=== PATIENT | female | born 1960 | race African-American/Black ===

== ENCOUNTER 2018-08-26 05:55 | Inpatient (IN) ==
[2018-08-26] MEDS ORDERED: ONDANSETRON 4 MG/2 ML VIAL IV STA (06:19)
[2018-08-26] MEDS ORDERED: HYDROmorphone 2 MG/1 ML VIAL IV STA ×2 (06:19→08:54)
[2018-08-26 07:16] LABS: Basophils # 0.1 10*3/uL (0.0-0.2); Basophils % 0.2 % (0.0-0.8); Eosinophils # 0.2 10*3/uL (0.0-0.87); Eosinophils % 0.7 % (0.00-10.9); Hematocrit 37.2 VOL% (35.7-47.0); Hemoglobin 11.5 GM/DL (12.0-16.0); Immature Granulocytes Absolute 0.47 #; Lymphocytes # 2.1 10*3/uL (1.4-4.0); Lymphocytes % 8.8 % (21.3-54.2); Mean Corpuscular HGB Conc 30.9 GM/DL (32-36); Mean Corpuscular Hemoglobin 29 PG (27-34); Mean Corpuscular Volume 94.4 FL (87-102); Mean Platelet Volume 11.1 FL (9.6-12.0); Monocytes # 1.1 10*3/uL (0.11-0.8); Monocytes % 4.7 % (1.7-12.7); Neutrophils # 20.1 10*3/uL (1.4-7.4); Neutrophils % 83.6 % (38.7-73.9); Platelet Count 168 T/CUMM (130-400); Red Blood Count 3.94 MC/CUMM (3.8-5.5); Red Cell Distribution Width 18.7 % (9.3-17.3)
[2018-08-26] MEDS ORDERED: cefTRIAXone 1,000 MG in SODIUM CHLORIDE 0.9% 100 ML IV STA (07:26)
[2018-08-26 07:38] LABS: Alanine Aminotransferase 19 U/L (13-56); Albumin 3.2 G/DL (3.4-5.0); Alkaline Phosphatase 74 U/L (45-117); Aspartate Amino Transferase 15 U/L (0-37); Blood Urea Nitrogen 16 MG/DL (7-18); Calcium 8.7 MG/DL (8.5-10.1); Glucose 121 MG/DL (74-106); Potassium 3.4 MMOL/L (3.5-5.1); Sodium 143 MMOL/L (136-145); Total Protein 7.1 G/DL (6.4-8.3)
[2018-08-26 07:39] LABS: Band Neutrophils 5 % (0-10); Hypochromasia 1+; Lymphocytes 8 % (20-55); Platelet Estimate Adequate; Segmented Neutrophils 82 % (50-85); Total Cells Counted 100
[2018-08-26 07:40] LABS: Ovalocytes Slight
[2018-08-26 07:41] LABS: Lactic Acid 2.1 MMOL/L (0.4-2.0)
[2018-08-26 08:35] LABS: Apearance,Urine Slightly Hazy (Clear); Bacteria,Urine Many /HPF (Few); Bilirubin,Urine Negative (Negative); Blood, Urine Moderate mg/dL (Negative); Glucose,Urine (UA) Negative (Negative); Ketones,Urine Negative (Negative); Mucus,Urine Occasional /LPF (Occasional); Nitrite,Urine Negative (Negative); Protein,Urine 30 MG/DL; RBC,Urine 59 /HPF (0-4); Squamous Epithelial Cell,Urine Occasional /HPF (0-10); Urine Color Yellow (Yellow); Urine Specific Gravity 1.014 (1.001-1.035); Urine Urobilinogen < 2.0 EU/DL (0.2-1.0); WBC,Urine 377 /HPF (0-6)
[2018-08-26] MEDS ORDERED: ONDANSETRON 4 MG/2 ML VIAL IV PRN (08:52)
[2018-08-26] MEDS: SODIUM CHLORIDE 0.9% 1,000 ML IV SCH ×2 (10:45→20:10)
[2018-08-26 11:34] LABS: Lactic Acid 2.6 MMOL/L (0.4-2.0)
[2018-08-26] MEDS: HYDROmorphone 2 MG/1 ML VIAL IV SCH ×4 (13:04→23:06)
[2018-08-26] MEDS: PANTOPRAZOLE 40 MG TABLET PO SCH (13:04)
[2018-08-26] MEDS ORDERED: traMADol 50 MG TABLET PO PRN (15:43)
[2018-08-26] MEDS: CITALOPRAM 20 MG TABLET PO SCH (16:03)
[2018-08-26] MEDS: amLODIPine 10 MG TABLET PO SCH (16:03)
[2018-08-26] MEDS: ACETAMINOPHEN 325 MG TABLET PO PRN (17:35)
[2018-08-26] MEDS: MEROPENEM 1,000 MG in SODIUM CHLORIDE 0.9% 100 ML IV SCH (18:28)
[2018-08-26] MEDS: CARVEDILOL 3.125 MG TABLET PO SCH (20:42)
[2018-08-26] MEDS: CLORAZEPATE 3.75 MG TABLET PO SCH (20:42)
[2018-08-26] MEDS ORDERED: cefTRIAXone 1,000 MG in SYRINGE 1 EACH IV SCH (21:00)
[2018-08-27] MEDS: MEROPENEM 1,000 MG in SODIUM CHLORIDE 0.9% 100 ML IV SCH ×3 (01:40→20:26)
[2018-08-27 02:38] LABS: Basophils # 0.1 10*3/uL (0.0-0.2); Basophils % 0.3 % (0.0-0.8); Eosinophils % 0.1 % (0.00-10.9); Hematocrit 34.2 VOL% (35.7-47.0); Hemoglobin 10.2 GM/DL (12.0-16.0); Immature Granulocytes % 1.4 %; Immature Granulocytes Absolute 0.32 #; Lymphocytes # 1.5 10*3/uL (1.4-4.0); Lymphocytes % 6.6 % (21.3-54.2); Mean Corpuscular HGB Conc 29.8 GM/DL (32-36); Mean Corpuscular Hemoglobin 28 PG (27-34); Mean Corpuscular Volume 94.7 FL (87-102); Monocytes # 2.4 10*3/uL (0.11-0.8); Monocytes % 10.6 % (1.7-12.7); NRBC # 0.07 10*3/uL; Neutrophils # 18.2 10*3/uL (1.4-7.4); Platelet Count 171 T/CUMM (130-400); Red Blood Count 3.61 MC/CUMM (3.8-5.5); Red Cell Distribution Width 19.3 % (9.3-17.3); White Blood Count 22.5 T/CUMM (4-12)
[2018-08-27 03:06] LABS: Calcium 7.6 MG/DL (8.5-10.1); Osmolality,Calculated 286.1 MOS/KG (273-304); Risk Ratio 2.71; Thyroid Stimulating Hormone 0.746 uIU/ml (0.358-3.74)
[2018-08-27 03:19] LABS: Hypochromasia 1+; Platelet Estimate Normal; Polychromasia Few; Stomatocytes 1+
[2018-08-27] MEDS: HYDROmorphone 2 MG/1 ML VIAL IV SCH ×4 (04:25→21:28)
[2018-08-27] MEDS: SODIUM CHLORIDE 0.9% 1,000 ML IV SCH ×2 (04:33→20:25)
[2018-08-27] MEDS ORDERED: cefTRIAXone 1,000 MG in SYRINGE 1 EACH IV SCH (07:30)
[2018-08-27] MEDS: CARVEDILOL 3.125 MG TABLET PO SCH ×2 (08:56→20:24)
[2018-08-27] MEDS: CITALOPRAM 20 MG TABLET PO SCH (08:56)
[2018-08-27] MEDS: POTASSIUM CHLORIDE 20 MEQ TABLET PO SCH (08:56)
[2018-08-27] MEDS: CHOLECALCIFEROL 1,000 UNIT TABLET PO SCH (08:56)
[2018-08-27] MEDS: PANTOPRAZOLE 40 MG TABLET PO SCH (08:57)
[2018-08-27] MEDS: amLODIPine 10 MG TABLET PO SCH (09:31)
[2018-08-27] MEDS: CLORAZEPATE 3.75 MG TABLET PO SCH ×2 (10:44→20:24)
[2018-08-27] MEDS ORDERED: ALUMINUM/MAGNES/SIMETH MAX STR 30 ML UDCUP PO PRN (13:15)
[2018-08-27] MEDS: ACETAMINOPHEN 325 MG TABLET PO PRN (16:37)
[2018-08-28] MEDS: MEROPENEM 1,000 MG in SODIUM CHLORIDE 0.9% 100 ML IV SCH (02:04)
[2018-08-28 04:18] LABS: Basophils # 0.1 10*3/uL (0.0-0.2); Basophils % 0.3 % (0.0-0.8); Eosinophils # 0.2 10*3/uL (0.0-0.87); Eosinophils % 0.7 % (0.00-10.9); Hematocrit 33.4 VOL% (35.7-47.0); Immature Granulocytes Absolute 0.45 #; Lymphocytes # 1.5 10*3/uL (1.4-4.0); Lymphocytes % 6.7 % (21.3-54.2); Mean Corpuscular HGB Conc 29.9 GM/DL (32-36); Mean Corpuscular Hemoglobin 28 PG (27-34); Mean Corpuscular Volume 94.9 FL (87-102); Mean Platelet Volume 11.3 FL (9.6-12.0); Monocytes # 2.1 10*3/uL (0.11-0.8); NRBC # 0.02 10*3/uL; Neutrophils # 18.7 10*3/uL (1.4-7.4); Neutrophils % 81.3 % (38.7-73.9); Platelet Count 181 T/CUMM (130-400); Red Blood Count 3.52 MC/CUMM (3.8-5.5); Red Cell Distribution Width 19.4 % (9.3-17.3)
[2018-08-28 04:33] LABS: Calcium 7.6 MG/DL (8.5-10.1); Osmolality,Calculated 289.7 MOS/KG (273-304); Potassium 4.3 MMOL/L (3.5-5.1)
[2018-08-28 05:21] LABS: Anisocytosis 2+; Band Neutrophils 2 % (0-10); Eosinophils 2 % (0-10); Lymphocytes 5 % (20-55); Macrocytosis 1+; Microcytosis 1+; Platelet Estimate Normal; Segmented Neutrophils 85 % (50-85); Total Cells Counted 100
[2018-08-28] MEDS: SODIUM CHLORIDE 0.9% 1,000 ML IV SCH ×4 (05:28→23:12)
[2018-08-28] MEDS: HYDROmorphone 2 MG/1 ML VIAL IV SCH ×5 (09:15→18:16)
[2018-08-28] MEDS: CHOLECALCIFEROL 1,000 UNIT TABLET PO SCH (09:16)
[2018-08-28] MEDS: POTASSIUM CHLORIDE 20 MEQ TABLET PO SCH (09:16)
[2018-08-28] MEDS: PANTOPRAZOLE 40 MG TABLET PO SCH (09:16)
[2018-08-28] MEDS: amLODIPine 10 MG TABLET PO SCH (09:16)
[2018-08-28] MEDS: CITALOPRAM 20 MG TABLET PO SCH (09:16)
[2018-08-28] MEDS: CARVEDILOL 3.125 MG TABLET PO SCH ×2 (09:17→20:14)
[2018-08-28] MEDS: CLORAZEPATE 3.75 MG TABLET PO SCH ×2 (10:24→20:17)
[2018-08-28] MEDS: CEFUROXIME 500 MG TABLET PO SCH (20:14)
[2018-08-29] MEDS: HYDROmorphone 2 MG/1 ML VIAL IV SCH ×6 (00:26→22:28)
[2018-08-29 04:34] LABS: Basophils # 0.1 10*3/uL (0.0-0.2); Basophils % 0.5 % (0.0-0.8); Eosinophils # 0.2 10*3/uL (0.0-0.87); Eosinophils % 1.4 % (0.00-10.9); Hematocrit 33.1 VOL% (35.7-47.0); Hemoglobin 10.2 GM/DL (12.0-16.0); Immature Granulocytes % 2.6 %; Immature Granulocytes Absolute 0.39 #; Lymphocytes # 1.6 10*3/uL (1.4-4.0); Lymphocytes % 10.7 % (21.3-54.2); Mean Corpuscular HGB Conc 30.8 GM/DL (32-36); Mean Corpuscular Hemoglobin 29 PG (27-34); Mean Corpuscular Volume 93.5 FL (87-102); Mean Platelet Volume 11.4 FL (9.6-12.0); Monocytes # 1.3 10*3/uL (0.11-0.8); Monocytes % 8.6 % (1.7-12.7); NRBC # 0.04 10*3/uL; Neutrophils # 11.6 10*3/uL (1.4-7.4); Neutrophils % 76.2 % (38.7-73.9); Platelet Count 209 T/CUMM (130-400); Red Blood Count 3.54 MC/CUMM (3.8-5.5); Red Cell Distribution Width 19.2 % (9.3-17.3); White Blood Count 15.2 T/CUMM (4-12)
[2018-08-29 05:01] LABS: Calcium 7.9 MG/DL (8.5-10.1); Potassium 4.1 MMOL/L (3.5-5.1)
[2018-08-29] MEDS ORDERED: ceFAZolin 2,000 MG in PREMIX 1 EACH IV ONE (06:00)
[2018-08-29] MEDS: SODIUM CHLORIDE 0.9% 1,000 ML IV SCH ×3 (06:45→20:53)
[2018-08-29] MEDS ORDERED: fentaNYL 100 MCG/2 ML VIAL ONE (08:02)
[2018-08-29] MEDS ORDERED: PROPOFOL 200 MG/20 ML VIAL IV ONE (08:02)
[2018-08-29] MEDS ORDERED: SEVOFLURANE 1 UNIT/15 MINUTE INH ONE (08:02)
[2018-08-29] MEDS ORDERED: DEXAMETHASONE 10 MG/1 ML VIAL ONE (08:03)
[2018-08-29] MEDS ORDERED: MIDAZOLAM 2 MG/2 ML VIAL ONE (08:03)
[2018-08-29] MEDS ORDERED: ACETAMINOPHEN 1,000 MG/100 ML VIAL IV ONE (08:03)
[2018-08-29] MEDS ORDERED: ONDANSETRON 4 MG/2 ML VIAL ONE (08:03)
[2018-08-29] MEDS ORDERED: PHENYLEPHRINE 1 MG/10 ML SYRINGE IV ONE (08:03)
[2018-08-29] MEDS: CHOLECALCIFEROL 1,000 UNIT TABLET PO SCH (08:49)
[2018-08-29] MEDS: CLORAZEPATE 3.75 MG TABLET PO SCH ×2 (08:49→20:52)
[2018-08-29] MEDS: CARVEDILOL 3.125 MG TABLET PO SCH ×2 (08:51→20:52)
[2018-08-29] MEDS: CEFUROXIME 500 MG TABLET PO SCH ×2 (08:52→20:52)
[2018-08-29] MEDS: PANTOPRAZOLE 40 MG TABLET PO SCH (08:52)
[2018-08-29] MEDS: POTASSIUM CHLORIDE 20 MEQ TABLET PO SCH (08:52)
[2018-08-29] MEDS: CITALOPRAM 20 MG TABLET PO SCH (08:52)
[2018-08-29] MEDS: amLODIPine 10 MG TABLET PO SCH (08:52)
[2018-08-30] MEDS: SODIUM CHLORIDE 0.9% 1,000 ML IV SCH ×2 (04:54→17:01)
[2018-08-30 05:19] LABS: Basophils % 0.1 % (0.0-0.8); Hematocrit 32.1 VOL% (35.7-47.0); Hemoglobin 9.8 GM/DL (12.0-16.0); Immature Granulocytes % 2.4 %; Lymphocytes # 1.3 10*3/uL (1.4-4.0); Lymphocytes % 10.2 % (21.3-54.2); Mean Corpuscular HGB Conc 30.5 GM/DL (32-36); Mean Corpuscular Hemoglobin 28 PG (27-34); Mean Platelet Volume 11.2 FL (9.6-12.0); Monocytes # 0.5 10*3/uL (0.11-0.8); Monocytes % 4.1 % (1.7-12.7); Neutrophils # 10.5 10*3/uL (1.4-7.4); Neutrophils % 83.2 % (38.7-73.9); Platelet Count 255 T/CUMM (130-400); Red Blood Count 3.45 MC/CUMM (3.8-5.5); Red Cell Distribution Width 19.2 % (9.3-17.3); White Blood Count 12.6 T/CUMM (4-12)
[2018-08-30] MEDS: HYDROmorphone 2 MG/1 ML VIAL IV SCH ×3 (05:40→17:01)
[2018-08-30 05:42] LABS: Calcium 7.9 MG/DL (8.5-10.1); Potassium 4.6 MMOL/L (3.5-5.1)
[2018-08-30] MEDS: CITALOPRAM 20 MG TABLET PO SCH (10:35)
[2018-08-30] MEDS: CLORAZEPATE 3.75 MG TABLET PO SCH (10:35)
[2018-08-30] MEDS: amLODIPine 10 MG TABLET PO SCH (10:35)
[2018-08-30] MEDS: CEFUROXIME 500 MG TABLET PO SCH (10:35)
[2018-08-30] MEDS: CHOLECALCIFEROL 1,000 UNIT TABLET PO SCH (10:36)
[2018-08-30] MEDS: POTASSIUM CHLORIDE 20 MEQ TABLET PO SCH (10:36)
[2018-08-30] MEDS: PANTOPRAZOLE 40 MG TABLET PO SCH (10:36)
[2018-08-30] MEDS: CARVEDILOL 3.125 MG TABLET PO SCH (10:36)
[2018-08-30 18:18] VITALS: BP 144/72
== END 2018-08-30 12:33 | disposition home or self-care (01) | DRG 829 ==
LOC: N.ED 05:55 → N.EDINP 08:49 → N.5E 09:44 → N.4E 10:08
PROVIDERS: ADMIT Hospitalist; ATTEND Hospitalist

== ENCOUNTER 2022-10-22 23:41 | Inpatient (IN) ==
[2022-10-23] MEDS ORDERED: ONDANSETRON 4 MG/2 ML VIAL IV STA (00:07)
[2022-10-23] MEDS ORDERED: MORPHINE 2 MG/1 ML SYRINGE IV STA (00:07)
[2022-10-23] MEDS ORDERED: SODIUM CHLORIDE 0.9% 1,000 ML IV STA (00:07)
[2022-10-23 00:43] LABS: Basophils % 0.2 % (0.0-0.8); Eosinophils # 0.3 10*3/uL (0.0-0.87); Hematocrit 36.5 VOL% (35.7-47.0); Hemoglobin 11.6 GM/DL (12.0-16.0); Immature Granulocytes % 0.6 %; Immature Granulocytes Absolute 0.09 #; Lymphocytes # 2.4 10*3/uL (1.4-4.0); Lymphocytes % 15.3 % (21.3-54.2); Mean Corpuscular HGB Conc 31.8 GM/DL (32-36); Mean Corpuscular Volume 85.5 FL (87-102); Mean Platelet Volume 10.1 FL (9.6-12.0); Monocytes # 0.7 10*3/uL (0.11-0.8); Monocytes % 4.6 % (1.7-12.7); Neutrophils % 77.3 % (38.7-73.9); Platelet Count 335 T/CUMM (130-400); Red Blood Count 4.27 MC/CUMM (3.8-5.5); Red Cell Distribution Width 17.5 % (9.3-17.3); White Blood Count 15.8 T/CUMM (4-12)
[2022-10-23 01:06] LABS: Albumin 3.6 G/DL (3.4-5.0); Bilirubin,Total 0.4 MG/DL (0.20-1.00); Calcium 7.4 MG/DL (8.5-10.1); Osmolality,Calculated 281.5 MOS/KG (273-304); Potassium 3.4 MMOL/L (3.5-5.1); Total Protein 8.1 G/DL (6.4-8.2)
[2022-10-23 02:04] LABS: Bacteria,Urine Few /HPF (Few); Mucus,Urine Occasional /LPF (Occasional); RBC,Urine 2 /HPF (0-4); Squamous Epithelial Cell,Urine Few /HPF (0-10)
[2022-10-23 02:05] LABS: Bilirubin,Urine Negative (Negative); Blood, Urine Trace mg/dL (Negative); Glucose,Urine (UA) Negative (Negative); Ketones,Urine Negative (Negative); Nitrite,Urine Positive (Negative); Protein,Urine 30 mg/dL (Negative); Urine Appearance Slightly Hazy (Clear); Urine Color Yellow (Yellow); Urine Specific Gravity 1.015 (1.001-1.035)
[2022-10-23 02:06] LABS: Urine Urobilinogen 0.2 eU/dL (<2.0)
[2022-10-23] MEDS ORDERED: PIPERACILLIN/TAZOBACTAM 3,375 MG in SODIUM CHLORIDE 0.9% 100 ML IV STA (02:46)
[2022-10-23] MEDS ORDERED: ONDANSETRON 4 MG/2 ML VIAL IV PRN (02:50)
[2022-10-23] MEDS ORDERED: hydrALAZINE 20 MG/1 ML VIAL IV PRN (02:50)
[2022-10-23] MEDS ORDERED: MORPHINE 2 MG/1 ML SYRINGE IV PRN (02:50)
[2022-10-23] MEDS: DEXTROSE 5% NACL 0.45% 1,000 ML IV SCH ×4 (05:01→20:53)
[2022-10-23 05:46] LABS: Basophils % 0.2 % (0.0-0.8); Eosinophils # 0.1 10*3/uL (0.0-0.87); Eosinophils % 0.7 % (0.00-10.9); Hematocrit 35.3 VOL% (35.7-47.0); Immature Granulocytes % 0.5 %; Immature Granulocytes Absolute 0.07 #; Lymphocytes # 1.4 10*3/uL (1.4-4.0); Lymphocytes % 10.4 % (21.3-54.2); Mean Corpuscular HGB Conc 31.2 GM/DL (32-36); Mean Corpuscular Volume 87.6 FL (87-102); Mean Platelet Volume 10.2 FL (9.6-12.0); Monocytes # 0.5 10*3/uL (0.11-0.8); Neutrophils % 84.2 % (38.7-73.9); Platelet Count 311 T/CUMM (130-400); Red Blood Count 4.03 MC/CUMM (3.8-5.5); Red Cell Distribution Width 17.7 % (9.3-17.3); White Blood Count 13.6 T/CUMM (4-12)
[2022-10-23 05:55] LABS: Calcium 7.2 MG/DL (8.5-10.1); Osmolality,Calculated 284.3 MOS/KG (273-304); Potassium 3.2 MMOL/L (3.5-5.1)
[2022-10-23] MEDS: PANTOPRAZOLE 40 MG VIAL IV SCH (10:00)
[2022-10-23] MEDS: PIPERACILLIN/TAZOBACTAM 3,375 MG in SODIUM CHLORIDE 0.9% 100 ML IV SCH ×2 (12:55→20:53)
[2022-10-24] MEDS: DEXTROSE 5% NACL 0.45% 1,000 ML IV SCH ×3 (03:54→23:50)
[2022-10-24] MEDS: PIPERACILLIN/TAZOBACTAM 3,375 MG in SODIUM CHLORIDE 0.9% 100 ML IV SCH ×3 (03:55→23:51)
[2022-10-24] MEDS: PANTOPRAZOLE 40 MG VIAL IV SCH (09:24)
[2022-10-25 08:12] VITALS: BP 134/75
[2022-10-25] MEDS: PANTOPRAZOLE 40 MG VIAL IV SCH (10:26)
[2022-10-25] MEDS: PIPERACILLIN/TAZOBACTAM 3,375 MG in SODIUM CHLORIDE 0.9% 100 ML IV SCH (10:35)
== END 2022-10-25 13:21 | disposition home or self-care (01) | DRG 389 ==
LOC: N.ED 23:41 → N.EDINP 10-23 03:00 → N.TELES 10-23 03:31
PROVIDERS: ADMIT Surgery; ATTEND Surgery